=== PATIENT | male | born 1965 | race Two or more races ===

== ENCOUNTER 2017-07-28 04:58 | Day surgery (SDC) | payer OTHER ==
[2017-07-27 13:48] VITALS: BMI 32.6
[2017-07-28] MEDS ORDERED: LIDOCAINE 1%/EPI 1:100000 (20 ML MULTI DOSE VIAL) ONE (07:21)
[2017-07-28] MEDS ORDERED: BUPIVACAINE HCL/PF 0.5% (5MG/ML) 10 ML VIAL ONE (07:22)
--- NOTE | 2017-07-28 07:50 | HP ---
Satellite [facility] - Chief Complaint Chief Complaint: LEFT KNEE PAIN History Source: Patient - Past Medical History Allergies/Adverse Reactions: Allergies Allergy/AdvReac Type Severity Reaction Status Date / Time No Known Drug Allergies Allergy Verified 07/28/17 07:08 - Current Medications Current Medications: Home Medications Medication Instructions Recorded NK [No Known Home Medication] 07/27/17 Satellite Physical Exam - Physical Examination Vital Signs: Vital Signs Period Temp Pulse Resp BP Sys/Carlos Pulse Ox Last 24 Hr 97.9 F-97.9 F 63-63 20-20 139-139/90-90 98 Extremities: Other (+ JOINT LINE TENDERNESS) Satellite Impression/Plan - Impression/Plan Impression: ONTERNAL DERANGEMENT LEFT KNEE Operative Procedure: ARTHROSCOPY LEFT KNEE Date to be Performed: 07/28/17
[2017-07-28] MEDS ORDERED: MIDAZOLAM HCL 2 MG/2 ML SINGLE DOSE VIAL ONE (07:52)
[2017-07-28] MEDS ORDERED: PROPOFOL 20 ML ONE (07:53)
[2017-07-28] MEDS ORDERED: SUCCINYLCHOLINE CHLORIDE 200 MG/10 ML VIAL ONE (07:54)
[2017-07-28] MEDS ORDERED: BUPIVACAINE HCL/PF 0.5% (5MG/ML) 10 ML VIAL IJ ONE (08:18)
[2017-07-28] MEDS ORDERED: LIDOCAINE HCL/PF 2% SDV 5ML VIAL ONE (08:19)
[2017-07-28] MEDS ORDERED: KETOROLAC TROMETHAMINE 30 MG/1 ML VIAL ONE (08:19)
[2017-07-28] MEDS ORDERED: DEXAMETHASONE SOD PHOSPHATE 4 MG/1 ML VIAL ONE (08:19)
[2017-07-28] MEDS ORDERED: LIDOCAINE 1%/EPI 1:100000 (20 ML MULTI DOSE VIAL) IJ ONE (08:19)
--- NOTE | 2017-07-28 08:29 | OP ---
Operative Note - Note: Operative Date: 07/28/17 Pre-Operative Diagnosis: internal derangement left knee Operation: arthroscopy left knee with partial MM and chondroplasty patella Post-Operative Diagnosis: Same as Pre-op Anesthesia: General Operative Report Dictated: Yes
--- NOTE | 2017-07-28 09:58 | OP ---
DATE OF OPERATION: 07/28/2017 PREOPERATIVE DIAGNOSIS: Internal derangement of the left knee. POSTOPERATIVE DIAGNOSIS: Internal derangement of the left knee. PROCEDURE: Arthroscopy, left knee; partial medial meniscectomy and chondroplasty of patella. SURGICAL ATTENDING: Hero Jacobo MD ANESTHESIA: General, LMA. CLOSURE: Nylon 4-0. COMPLICATIONS: None. CONDITION: To recovery in stable condition. DESCRIPTION OF OPERATIVE PROCEDURE: Patient taken to the operating room on July 28, 2017. General anesthesia with LMA was administered by the anesthesiologist. Left lower extremity was prepped and draped in the usual sterile fashion. Medial and lateral infrapatellar portal sites were infiltrated with 1% Xylocaine with epinephrine. Both portals were made with a 15 blade followed by a blunt trocar. The scope was placed in the lateral infrapatellar portal and up into the suprapatellar pouch. A cocktail of 10 mL of 0.5% Marcaine, 10 mL of 1% lidocaine and 20 mL of arthroscopic saline was introduced into the knee for anesthesia. After allowing the medication to work the procedure was performed. The medial and lateral gutters were visualized to be clean. The undersurface of the patella was found to have some "crab meat." This was debrided using the shaver. The trochlea was found to be intact. With valgus stress on the knee the medial compartment was entered. Medial meniscus visualized and probed and found to have a complex tear of its posterior horn. This was debrided back to smooth stable meniscal tissue with meniscal biters. The medial femoral condyle was run and found to be intact as was the medial tibial plateau. At 90 degrees the ACL was visualized, probed, found to be intact. In the figure 4 position the lateral compartment was entered. The lateral meniscus was visualized, probed and found to be intact. The lateral femoral condyle was run and found to be intact as was the lateral tibial plateau. The knee was irrigated with copious amounts of irrigation. The portals were closed using 4-0 nylon. Prior to closure, 20 mL of 0.5% Marcaine was infused into the knee for postoperative analgesia through the trocar. A sterile pressure dressing was applied. Patient awakened from anesthesia and transferred to recovery in stable condition. No complication. Estimated blood loss negligible. Esteban LANDEROS/[id number]
[2017-07-28] MEDS ORDERED: ONDANSETRON 4 MG/2 ML VIAL IVPUSH PRN (10:17)
[2017-07-28] MEDS ORDERED: oxyCODONE HCL 5 MG TABLET PO PRN (10:17)
[2017-07-28] MEDS ORDERED: LACTATED RINGERS SOLUTION 1,000 ML IV SCH (10:30)
[2017-07-28 10:51] VITALS: TEMP 97.8
[2017-07-28 11:50] VITALS: BP 121/72; PULSE 70
--- NOTE | 2017-07-31 16:55 | PATH ---
Surgical Pathology Report Patient Name: COLUMBA BERUMEN [facility]. Rec. #: [id number] /Age/Gender: 1965 (Age: 52) / M Account: [id number] Location: [facility] Taken: 07/26/2017 Received: 07/27/2017 Reported: 07/31/2017 Physicians: Hero Jacobo M.D. Specimen(s) Received LEFT KNEE SHAVINGS Clinical History Medial meniscus tear Final Diagnosis LEFT KNEE, SHAVINGS: FRAGMENTS OF SYNOVIAL TISSUE SHOWING REACTIVE CHANGE. SEPARATE CARTILAGE AND FIBROCONNECTIVE TISSUE WITH DEGENERATIVE CHANGE. Electronically Signed Matti Clifford M.D. Gross Description Received in formalin, labeled "left knee shavings," is a 4.5 x 3.0 x 0.3 cm. aggregate of emery-yellow soft tissue fragments. A medical representative portion is submitted in one cassette. /07/28/201707/28/2017
== END 2017-07-28 11:45 | disposition home or self-care (01) ==
LOC: JASU-SURG 04:58
PROVIDERS: ATTEND Orthopaedic Surgery
PROC: 0SBD4ZZ Excision of Left Knee Joint, Percutaneous Endoscopic Approach (ICD-10-PCS; principal; 2017-07-28 08:00)
DX: M23.8X2 Other internal derangements of left knee (principal)
CPT/HCPCS: 88304-TC; 94760; 97116-GP